=== PATIENT | female | born 1965 | race Caucasian/White ===

== ENCOUNTER 2017-07-12 17:02 | Emergency (ER) | payer BC, OTHER ==
[~2017-07-12] VITALS: Ht 167.6 cm; Wt 132.7 kg
[2017-07-12] MEDS ORDERED: NAPR550T22 (17:14)
[2017-07-12] MEDS ORDERED: LEVA45AE (17:14)
[2017-07-12 18:32] LABS: BASO # 0.1 10^3/uL (0.0-0.2); BASO % 0.6 % (0.0-1.0); EOS # 0.2 10^3/uL (0.0-0.50); EOS % 1.6 % (0.0-3.0); IMMATURE GRANULOCYTE % 0.4 % (0-0); LYMPH # 2.1 10^3/uL (1.5-4.5); LYMPH % 18.8 % (24.0-44.0); MEAN CORPUSCULAR HEMOGLOBIN 29.7 pg (27.0-33.0); MEAN CORPUSCULAR HGB CONC 33.3 g/dl (32.0-36.5); MONO # 0.7 10^3/uL (0.0-0.8); MONO % 6.6 % (0.0-5.0); PLATELET COUNT, AUTOMATED 342 10^3/uL (150-450); RED CELL DISTRIBUTION WIDTH 13.1 % (11.5-14.5); WHITE BLOOD COUNT 11.1 10^3/uL (4.0-10.0)
[2017-07-12 18:44] LABS: ANION GAP 4 MEQ/L (8-16); BLOOD UREA NITROGEN 12 MG/DL (7-18); CALCIUM LEVEL 8.7 MG/DL (8.5-10.1); CARBON DIOXIDE LEVEL 30 MEQ/L (21-32); CHLORIDE LEVEL 103 MEQ/L (98-107); CREATININE FOR GFR 0.96 MG/DL (0.55-1.02); GLOMERULAR FILTRATION RATE > 60.0 (>51); GLUCOSE, FASTING 99 MG/DL (70-105); MAGNESIUM LEVEL 2.1 MG/DL (1.8-2.4); POTASSIUM SERUM 3.6 MEQ/L (3.5-5.1); SODIUM LEVEL 137 MEQ/L (136-145)
--- NOTE | 2017-07-12 18:52 | REP ---
Chest one-view HISTORY: Chest pain Comparison: 04/11/2008 The lungs are clear. The heart is normal in size. The pulmonary vasculature is normal in appearance. Impression: No acute disease. Signed by Jesús Phillips MD 07/12/2017 06:43 P
[2017-07-12 19:02] VITALS: BP 141/81
--- NOTE | 2017-07-13 08:52 | ECGEPIP ---
Stationary ECG Study [facility] - ED Test Date: 2017-07-12 Pat Name: GAURAV GUZMÁN Department: Room: - Gender: F Senior Branch Manager: jp SHANNONB: 1965 Requested By: Dominic Kwan Order Number: [id number] Reading MD: Dominic Mayberry Measurements Intervals [place] Rate: 73 P: 32 DE: 202 QRS: -15 QRSD: 88 T: 23 QT: 392 QTc: 433 Interpretive Statements SINUS RHYTHM NO PRIORS Electronically Signed On 07-13-2017 8:52:15 EDT by Dominic Mayberry
== END 2017-07-12 19:16 | disposition home or self-care (01) ==
LOC: M ED 17:02
DX: R00.2 Palpitations (principal); J45.909 Unspecified asthma, uncomplicated; E66.9 Obesity, unspecified; Z79.899 Other long term (current) drug therapy; J30.89 Other allergic rhinitis

== ENCOUNTER 2023-10-31 12:00 | Emergency (ER) | payer BC, OTHER ==
[~2023-10-31] VITALS: Ht 167.6 cm; Wt 110.0 kg
[~2023-10-31 12:00] MED LIST: LEVA45AE; NAPR-832
[2023-10-31] MEDS ORDERED: MAGN500T2 (12:18)
[2023-10-31] MEDS ORDERED: FOLI1TAB11 (12:18)
[2023-10-31] MEDS ORDERED: VITA1CAP25 (12:18)
[2023-10-31 14:44] LABS: BASO # 0.1 10^3/uL (0.0-0.2); BASO % 0.6 % (0.0-1.0); EOS # 0.1 10^3/uL (0.0-0.5); EOS % 0.7 % (0.0-3.0); HEMATOCRIT 36.1 % (36.0-47.0); HEMOGLOBIN 11.8 g/dl (12.0-15.5); LYMPH # 1.4 10^3/uL (1.5-5.0); LYMPH % 15.9 % (24.0-44.0); MEAN CORPUSCULAR HEMOGLOBIN 30.5 pg (27.0-33.0); MEAN CORPUSCULAR HGB CONC 32.7 g/dl (32.0-36.5); MEAN CORPUSCULAR VOLUME 93.3 fl (80.0-96.0); MONO # 0.5 10^3/uL (0.0-0.8); MONO % 5.6 % (2.0-8.0); NEUTROPHILS # 6.9 10^3/uL (1.5-8.5); NEUTROPHILS % 76.9 % (36.0-66.0); PLATELET COUNT, AUTOMATED 274 10^3/uL (150-450); RED BLOOD COUNT 3.87 10^6/uL (4.00-5.40)
[2023-10-31 14:57] LABS: BLOOD UREA NITROGEN 12 MG/DL (9-23); CALCIUM LEVEL 9.1 MG/DL (8.5-10.1); CARBON DIOXIDE LEVEL 29 MMOL/L (20-31); CHLORIDE LEVEL 105 MMOL/L (98-107); GLOMERULAR FILTRATION RATE > 60.0 (>51); GLUCOSE, FASTING 95 MG/DL (60-100); POTASSIUM SERUM 4.2 MMOL/L (3.5-5.1); SODIUM LEVEL 139 MMOL/L (136-145)
[2023-10-31 15:00] LABS: THYROID STIMULATING HORMONE 1.766 uIU/ML (0.55-4.78)
[2023-10-31 15:10] VITALS: BP 119/61; TEMP 97.6; O2SAT 99
== END 2023-10-31 15:20 | disposition home or self-care (01) ==
LOC: M ED 12:00
DX: R55 Syncope and collapse (principal); M54.9 Dorsalgia, unspecified; J45.909 Unspecified asthma, uncomplicated; Z88.0 Allergy status to penicillin; Z91.040 Latex allergy status; Z79.899 Other long term (current) drug therapy

== ENCOUNTER → 2024-01-04 | Outpatient (REF) | payer OTHER ==
[~2024-01-04] MED LIST changes: +FOLI1TAB11; +MAGN500T2; +VITA1CAP25
== END ==
LOC: M LAB REF 17:29
PROVIDERS: ATTEND Registered Nurse
DX: Z01.419 Encounter for gynecological examination (general) (routine) without abnormal findings (principal)